=== PATIENT | female | born 1990 | race American Indian/Alaskan Native ===

== ENCOUNTER 2020-03-14 10:59 | Day surgery (SDC) | payer MEDICAID ==
[2020-03-10 11:33] LABS: Hematocrit 31.6 % (30.3-42.9); Hemoglobin 10.6 gm/dl (10.1-14.3); Mean Corpuscular HGB Conc 33 % (30-34); Mean Corpuscular Volume 82 fl (79-97); Platelet Count 291 K/mm3 (140-440); Red Blood Count 3.86 M/mm3 (3.65-5.03); Red Cell Distribution Width 15.2 % (13.2-15.2)
--- NOTE | 2020-03-13 17:00 | History and Physical Report ---
History of Present Illness Date of examination: 03/10/20 Chief complaint: Incomplete spontaneous desires cervical dilation and uterine curettage History of present illness: Past History : 5 Term Births: 2 Premature Births: 0 Living Children: 2 Para: 2 Mult. Births: 0 Prev : 2 Prev. attempt? 0 Aborta: 2 Elect. Ab: 1 Spont. 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 of genital herpes: no Partner hx. of genital herpes: no Hx of STD: HPV Active Medications (reviewed today): ZOLOFT 50 MG ORAL TABLET (SERTRALINE HCL) 1/2 pill PO in morning x 7 day then 1 po in the morning QD Current Allergies (reviewed today): No known allergies Past Medical History: Reviewed history from 09/05/2016 and no changes required: Negative Past Medical History Past Surgical History: Reviewed history from 10/14/2019 and no changes required: D&C: Family History Summary: Other Family Member - Has No Family History of Uterine Cancer - Entered On: 03/13/2020 Other Family Member - Has No Family History of Stomach Cancer - Entered On: 03/13/2020 Other Family Member - Has No Family History of Spontaneous DVT-PE - Entered On: 03/13/2020 Other Family Member - Has No Family History of Small Bowel Cancer - Entered On: 03/13/2020 Other Family Member - Has No Family History of Pancreatic Cancer - Entered On: 03/13/2020 Other Family Member - Has No Family History of Ovarvian Cancer - Entered On: 03/13/2020 Other Family Member - Has No Family History of Kidney/Urinary Tract Cancer - Entered On: 03/13/2020 Other Family Member - Has No Family History of Colon Cancer - Entered On: 03/13/2020 Other Family Member - Has No Family History of Breast Cancer - Entered On: 03/13/2020 Other Family Member - Has No Family History of Brain Cancer - Entered On: 03/13/2020 Other Family Member - Has No Family History of Biliary Tract Cancer - Entered On: 03/13/2020 General Comments - FH: mother - htn Social History: Reviewed history from 10/14/2019 and no changes required: no ETOH, drugs or smoking Patient is Smoking History: Patient has never smoked. Risk Factors: Smoked Tobacco Use: Never smoker Smokeless Tobacco Use: Never Passive smoke exposure: no Drug use: no HIV high-risk behavior: no Alcohol use: yes Exercise: no Seatbelt use: 100 % PAP Smear History: Date of Last PAP Smear: 10/05/2018 Previous Tobacco Use: Signed On - 10/14/2019 Smoked Tobacco Use: Never smoker Smokeless Tobacco Use: Never Counseled to quit/cut down: yes Passive smoke exposure: no Drug use: no HIV high-risk behavior: low risk Caffeine use: 1 drinks per day Previous Alcohol Use: Signed On - 10/14/2019 Alcohol use: yes Type: occ Exercise: no Seatbelt use: 100 % Dietary Counseling: pn yes PAP Smear History: Date of Last PAP Smear: 10/05/2018 Physical Exam Appearance: well developed, well nourished, no acute distress Other Exams Lungs: no rales, rhonchi, or wheezes Heart: S1, S2, no murmur, rub, or gallop Genitourinary Exam Uterus: deferred for EUA Impression & Recommendations: Problem # 1: Incomplete spontaneous without complication ([id number]) Consent reviewed and signed . Possible laparoscopy or laparotomy explained to praveena machado. The risks and alternatives for this surgery were reviewed with the patient. She was informed of possible bleeding, infection, injury to bowel, bladder, ureters or other adjacent organs. The patient was instructed/informed the following: The normal length of hospital stay for this procedure. Nothing to eat or drink after midnight the evening prior to surgery. Clear liquids the day before surgery. The usual discomforts associated with this procedure were detailed. Proper use of pain medicines was reviewed. Patient was given ample opportunity to have all her questions answered before signing informed consent. Medications and Allergies Allergies Allergy/AdvReac Type Severity Reaction Status Date / Time No Known Allergies Allergy Verified 03/09/20 14:53 Home Medications Medication Instructions Recorded Confirmed Last Taken Type Ibuprofen [Motrin 800 MG tab] 800 mg PO Q6H PRN #30 tablet 02/05/17 03/09/20 Unknown Rx Acetaminophen [Tylenol] 325 mg PO Q4H PRN 03/09/20 03/09/20 Unknown History Active Meds: Active Medications Lactated Ringer's (Lactated Ringers) 1,000 mls @ 100 mls/hr IV DIRECT JORDY Stop: 03/14/20 23:59 Cefazolin Sodium (Ancef/Sterile Water 2 Gm/20 Ml) 2 gm in 20 mls @ 80 mls/hr IV PREOP NR; Protocol Midazolam HCl (Versed) 2 mg IV PREOP NR Stop: 03/14/20 22:00 Exam Vital Signs Temp Pulse Resp BP Pulse Ox 98.2 F 77 20 107/57 100 03/10/20 11:00 03/10/20 11:00 03/10/20 11:00 03/10/20 11:00 03/10/20 11:00 Results - Labs 03/10/20 10:00 Assessment and Plan - Patient Problems (1) Incomplete spontaneous without complication Status: Acute
[~2020-03-14 10:59] MED LIST: LACTATED RINGERS 1,000 ML IV SCH; MIDAZOLAM 2 MG/2 ML INJ IV NR; ceFAZolin/Water 2 GM/20 ML 2 GM/20 ML SYRINGE IV NR
[2020-03-14] MEDS ORDERED: ONDANSETRON 4 MG/2 ML INJ IV PRN (11:29)
--- NOTE | 2020-03-14 11:29 | Anesthesia Day of Surgery ---
Anesthesia Day of Surgery - Day of Surgery Patient Examined: Yes Patient H&P Reviewed: Yes Patient is NPO: Yes
--- NOTE | 2020-03-14 11:29 | Anesthesia Consultation ---
Anesthesia Consult and Med Hx Date of service: 03/14/20 - Airway Anesthetic Teeth Evaluation: Good (upper and lower braces, no rubber bands) ROM Head & Neck: Adequate Mental/Hyoid Distance: Adequate Mallampati Class: Class I Intubation Access Assessment: Good - Pulmonary Exam CTA: Yes - Cardiac Exam Cardiac Exam: RRR - Pre-Operative Health Status ASA Pre-Surgery Classification: ASA1 Proposed Anesthetic Plan: General - Pulmonary Hx Smoking: No Hx Respiratory Symptoms: No - Cardiovascular System Hx Hypertension: No - Central Nervous System CVA: No - Endocrine Hx Renal Disease: No Hx Liver Disease: No Hx Insulin Dependent Diabetes: No Hx Non-Insulin Dependent Diabetes: No Hx Thyroid Disease: No - Other Systems Hx Obesity: No - Additional Comments Anesthesia Medical History Comments: No hx anesthetic complications. Suction D&C for missed Ab at 7-8wks.
[2020-03-14] MEDS ORDERED: PHENYLEPHRINE/NS 1,000 MCG/10 ML SYRINGE (OR USE) IV ONE (12:10)
[2020-03-14] MEDS ORDERED: GLYCOPYRROLATE 0.4 MG/2 ML INJ ONE (12:10)
[2020-03-14] MEDS ORDERED: dexAMETHasone 20 MG/5 ML VIAL ONE (12:10)
[2020-03-14] MEDS ORDERED: LIDOCAINE MPF (2%) 20 MG/1 ML VIAL 5 ML ONE (12:10)
[2020-03-14] MEDS ORDERED: ONDANSETRON 4 MG/2 ML INJ ONE (12:10)
[2020-03-14] MEDS ORDERED: fentaNYL 100 MCG/2 ML INJ ONE (12:11)
[2020-03-14] MEDS ORDERED: propofoL 200 MG/20 ML VIAL IV ONE (12:11)
[2020-03-14] MEDS ORDERED: METHYLERGONOVINE MALEATE 0.2 MG/ML VIAL IM ONE ×2 (12:51→12:58)
[2020-03-14] MEDS ORDERED: KETOROLAC 30 MG/1 ML INJ ONE (13:03)
[2020-03-14] MEDS: fentaNYL 100 MCG/2 ML INJ IV PRN ×2 (13:28→13:38)
--- NOTE | 2020-03-14 13:34 | Operative Report ---
Operative Report Operative Report: PREOPERATIVE DIAGNOSES: 1. Incomplete spontaneous POSTOPERATIVE DIAGNOSES: 1. Incomplete spontaneous PROCEDURE PERFORMED: 1. Cervical dilation 2. Uterine curettage (D&C). ANESTHESIA: General ESTIMATED BLOOD LOSS: Less than 50 cc. INDICATIONS: This is a 29-year-old female that presents incomplete spontaneous . PROCEDURE: The patient was seen in the preoperative suite. Expected procedure and postoperative course discussed with her. She was taken to the operative suite where general anesthesia was performed. She was placed in a dorsal lithotomy position. . A bimanual exam was done, the uterus was found to be retroverted and mobile approximately 9 weeks size. She was prepped and draped in the normal sterile fashion. Timeout was performed. Her bladder was drained with the red Baez catheter which produced approximately 50 cc of clear yellow urine. The cervix and vagina were grossly normal with no obvious masses or deformities. A bivalve operative speculum was placed in the vagina and the anterior lip of the cervix was grasped with the single-tooth tenaculum. The uterus was sounded to ~9 cm. The cervix was progressively dilated to allow 8 mm curved Vacurette. The Vacurette was placed intrauterine very carefully using anterior wall for guidance. Using approximately 50 mmHg pressure, tissue was removed from the uterus. A sharp curettage of the uterine cavity was then performed until a gritty texture was felt on all the surfaces. The specimen was collected and sent to pathology on [facility] for evaluation, permanent. No evidence of perforation was noted. At this point procedure was ended. The single-tooth tenaculum and speculum were removed. The cervix was found to be hemostatic. Counts were correct. Patient was taken to the PACU stable. Tissue obtained with the Vacurette as well as sharp curettage was sent to pathology for permanent evaluation.
--- NOTE | 2020-03-14 14:35 | Discharge Summary ---
Providers - Providers Date of discharge: 03/14/20 Attending physician: ALYSSIA GARCÍA Primary care physician: RICHARD CONTRERAS MD Hospitalization Condition: Good Procedures: Suction D&C Hospital course: Normal Disposition: DC-01 TO HOME OR SELFCARE - Discharge Diagnoses (1) Incomplete spontaneous without complication Status: Acute Core Measure Documentation - Palliative Care Palliative Care/ Comfort Measures: Not Applicable - Core Measures Any of the following diagnoses?: none Exam - Constitutional Vitals: Temp Pulse Resp BP Pulse Ox 98.6 F 101 H 14 108/66 99 03/14/20 14:00 03/14/20 14:00 03/14/20 14:00 03/14/20 14:00 03/14/20 14:00 General appearance: Present: no acute distress - Respiratory Respiratory effort: normal - Cardiovascular Rhythm: regular - Psychiatric Psychiatric: appropriate mood/affect, intact judgment & insight, memory intact, cooperative Plan Activity: other (No sex. No driving [id number]. Call office for any problems) Weight Bearing Status: Full Weight Bearing Diet: regular Special Instructions: no heavy lifting (greater than 25lbs) Follow up with: PRIMARY CARE, [Primary Care Provider] - 7 Days ALYSSIA GARCÍA MD [Staff Physician] - (as scheduled) Forms: Outpatient Surgery DC Inst. Prescriptions: Methylergonovine [Methergine] 0.2 mg PO Q6HR #4 tablet Ibuprofen [Motrin 800 MG tab] 800 mg PO TID PRN #30 tablet PRN Reason: Pain oxyCODONE /ACETAMINOPHEN [Percocet 5/325 mg] 1 - 2 tab PO Q4HR PRN #7 tablet PRN Reason: Pain
[2020-03-14 15:09] VITALS: BP 114/66
--- NOTE | 2020-03-14 15:20 | Post Anesthesia Evaluation ---
- Post Anesthesia Evaluation Patient Participated: Yes Airway Patent: Yes Stable Respiratory Function: Yes Nausea/Vomiting: No Temp > 96.8F: Yes Pain Manageable: Yes Adequeate Hydration: Yes Anesthesia Complications: No
== END 2020-03-14 15:05 | disposition home or self-care (01) ==
LOC: OR 10:59
PROVIDERS: ATTEND Obstetrics & Gynecology
DX: O03.4 Incomplete spontaneous abortion without complication (principal); Z11.59 Encounter for screening for other viral diseases; G43.909 Migraine, unspecified, not intractable, without status migrainosus; Z98.890 Other specified postprocedural states; Z79.899 Other long term (current) drug therapy; Z98.891 History of uterine scar from previous surgery
CPT/HCPCS: 36415; 59812; 85027; 86850; 86900; 86901; 88305; J0690; J1100; J1885; J2210; J2250; J2370; J2405; J2704; J3010; J7120; U0003